=== PATIENT | female | born 1965 | race American Indian/Alaskan Native ===

== ENCOUNTER 2019-03-28 11:28 | Emergency (ER) | payer OTHER ==
[2019-03-28 11:39] VITALS: BP 145/79
--- NOTE | 2019-03-28 11:41 | Emergency Department Report ---
Chief Complaint: Dizziness Stated Complaint: VAIBHAV/DIZZY Time Seen by Provider: 03/28/19 11:38 - HPI History of Present Illness: This is a 53 y.o. F. that presents to the ER with dizziness since yesterday. DM2 and arthritis Current smoker. Vaccines UTD - Exam Vital Signs: Vital Signs 03/28/19 11:37 Temperature 98.0 F Pulse Rate 95 H Respiratory 20 Rate Blood Pressure 145/79 O2 Sat by Pulse 99 Oximetry MSE screening note: Focused history and physical exam performed. Due to findings the following was ordered: This initial assessment/diagnostic orders/clinical plan/treatment(s) is/are subject to change based on patient's health status, clinical progression and re- assessment by fellow clinical providers in the ED. Further treatment and workup at subsequent clinical providers discretion. Patient/guardians urged not to elope from the ED as their condition may be serious if not clinically assessed and managed. Initial orders include: 1- Patient sent to [facility] for further evaluation and treatment 2- Accucheck ED Disposition for MSE Condition: Stable
--- NOTE | 2019-03-28 13:01 | Emergency Department Report ---
ED Dizziness HPI - General Chief Complaint: Dizziness Stated Complaint: VAIBHAV/DIZZY Time Seen by Provider: 03/28/19 11:38 Source: patient Mode of arrival: Ambulatory Limitations: No Limitations - History of Present Illness Initial Comments: 53-year-old female presents to ED with dizziness 1 day. Patient states she believes it is due to an upper respiratory infection that she has had for the last week. Patient reports cough, chest congestion, nasal congestion. Patient denies headache, nausea, vomiting. Denies ear pain. Reports dizziness when turning her head or leaning forward. MD Complaint: dizziness -: days(s) (1) Description: "room spinning" History of Same: No History of Trauma: No Severity: mild Improves With: remaining still Worsens With: movement, position Associated Symptoms: cough. denies: fever/chills, shortness of breath - Related Data Previous Rx's Medication Instructions Recorded Last Taken Type Amoxicillin [Amoxicillin TAB] 875 mg PO BID 10 Days #20 tablet 03/28/19 Unknown Rx Benzonatate [Tessalon Perles] 100 mg PO Q8HR PRN #20 capsule 03/28/19 Unknown Rx Fluticasone [Flonase] 1 spray NS QDAY #1 bottle 03/28/19 Unknown Rx Meclizine [Antivert] 25 mg PO TID PRN #20 tablet 03/28/19 Unknown Rx Allergies Allergy/AdvReac Type Severity Reaction Status Date / Time ketorolac [From Toradol] Allergy Rash Verified 03/28/19 11:30 ED Review of Systems ROS: Stated complaint: VAIBHAV/DIZZY Other details as noted in HPI Comment: All other systems reviewed and negative Constitutional: denies: chills, fever ENT: congestion Respiratory: cough. denies: shortness of breath Cardiovascular: denies: chest pain Gastrointestinal: denies: nausea, vomiting Neurological: vertigo. denies: headache ED Past Medical Hx - Past Medical History Hx Diabetes: Yes Additional medical history: RA - Surgical History Hx Appendectomy: Yes Additional Surgical History: Hysterectomy, cyst removal, - Social History Smoking Status: Current Every Day Smoker Substance Use Type: None - Medications Home Medications: Home Medications Medication Instructions Recorded Confirmed Last Taken Type Amoxicillin [Amoxicillin TAB] 875 mg PO BID 10 Days #20 tablet 03/28/19 Unknown Rx Benzonatate [Tessalon Perles] 100 mg PO Q8HR PRN #20 capsule 03/28/19 Unknown Rx Fluticasone [Flonase] 1 spray NS QDAY #1 bottle 03/28/19 Unknown Rx Meclizine [Antivert] 25 mg PO TID PRN #20 tablet 03/28/19 Unknown Rx ED Physical Exam - General Limitations: No Limitations General appearance: alert, in no apparent distress - Head Head exam: Present: atraumatic, normocephalic - Eye Eye exam: Present: normal appearance, PERRL, EOMI - ENT ENT exam: Present: other (sinus tenderness present) - Neck Neck exam: Present: normal inspection - Respiratory Respiratory exam: Present: normal lung sounds bilaterally. Absent: respiratory distress - Cardiovascular Cardiovascular Exam: Present: regular rate, normal rhythm - GI/Abdominal GI/Abdominal exam: Present: soft. Absent: distended - Extremities Exam Extremities exam: Present: normal inspection - Neurological Exam Neurological exam: Present: alert, oriented X3, CN II-XII intact, normal gait. Absent: motor sensory deficit - Psychiatric Psychiatric exam: Present: normal affect, normal mood - Skin Skin exam: Present: warm, dry, intact, normal color. Absent: rash ED Course Vital Signs 03/28/19 11:37 Temperature 98.0 F Pulse Rate 95 H Respiratory 20 Rate Blood Pressure 145/79 O2 Sat by Pulse 99 Oximetry ED Medical Decision Making - Medical Decision Making - dizziness w/ URI - sinus tenderness on exam, possible sinusitis - no neuro deficits - gait normal - denies MONTENEGRO - will give rx for amoxicillin, tessalon, flonase, meclizine - return precautions given - outpt f/u advised - Differential Diagnosis URI, sinusitis, vertigo Critical care attestation.: If time is entered above; I have spent that time in minutes in the direct care of this critically ill patient, excluding procedure time. ED Disposition Clinical Impression: Sinusitis, Upper respiratory infection Disposition: DC-01 TO HOME OR SELFCARE Is pt being admited?: No Condition: Stable Instructions: Sinusitis (ED), Upper Respiratory Infection (ED) Prescriptions: Amoxicillin [Amoxicillin TAB] 875 mg PO BID 10 Days #20 tablet Meclizine [Antivert] 25 mg PO TID PRN #20 tablet PRN Reason: Vertigo Fluticasone [Flonase] 1 spray NS QDAY #1 bottle Benzonatate [Tessalon Perles] 100 mg PO Q8HR PRN #20 capsule PRN Reason: Cough Referrals: SARA PAYNE MD [Primary Care Provider] - 3-5 Days PRIMARY CAREMD [Referring] - 3-5 Days [facility] [Provider Group] - 3-5 Days Time of Disposition: 12:59
== END 2019-03-28 13:21 | disposition home or self-care (01) ==
LOC: ED 11:28
DX: J01.90 Acute sinusitis, unspecified (principal); E11.9 Type 2 diabetes mellitus without complications; M06.9 Rheumatoid arthritis, unspecified; F17.200 Nicotine dependence, unspecified, uncomplicated; Z88.5 Allergy status to narcotic agent
CPT/HCPCS: 99282